=== PATIENT | male | born 1980 | race Caucasian/White ===

== ENCOUNTER 2017-12-11 15:01 | Emergency (ER) | payer OTHER ==
[~2017-12-11] VITALS: Ht 177.8 cm; Wt 95.4 kg
[~2017-12-11 15:01] MED LIST: ACET325T52 PO; BUSP15TA3 PO; CARB200T6 PO; CHOL500051 PO; CLOT15CR2 TP; DIPH25TA24 PO; FURO20TA4 PO; HALO5TAB PO; LORA2TAB2 PO; MENT71OI TP; RISP1TAB26 PO; TC1U15 TOP; TOPI100T37 PO
[2017-12-11 16:46] LABS: BASOPHILS % 0.8 % (0.0-2.0); EOSINOPHILS % 1.3 % (0.0-5.0); HEMATOCRIT. 37.3 % (42.0-52.0); LYMPHOCYTES % 29.2 % (20.0-50.0); MEAN CORPUSCULAR HEMOGLOBIN 28.7 pg (28.0-32.0); MEAN CORPUSCULAR VOLUME 82.6 fL (80.0-94.0); MONOCYTES % 8.3 % (2.0-8.0); NEUTROPHILS % 60.4 % (40.0-76.0); PLATELET 364 x1000/uL (130-400); RED BLOOD CELL COUNT 4.52 mill/uL (4.7-6.1); RED CELL DISTRIBUTION WIDTH 14.9 % (11.6-14.6)
[2017-12-11 16:49] LABS: CHLORIDE 106 mEq/L (98-107)
[2017-12-11 16:58] LABS: INR 1.2; PARTIAL THROMBOPLASTIN TIME 32.6 sec (23.4-31.0); PROTHROMBIN TIME 12.4 sec (9.1-11.1)
[2017-12-11] MEDS ORDERED: ACETAMINOPHEN 325MG TABLET PO ONE (18:45)
[2017-12-11] MEDS ORDERED: IOHEXOL-300 100 ML BOTTLE ONE (19:03)
[2017-12-11 19:25] LABS: CLARITY URINE CLEAR (CLEAR); COLOR URINE YELLOW (YELLOW); KETONES URINE NEGATIVE (NEGATIVE); LEUKOCYTE ESTERASE URINE NEGATIVE (NEGATIVE); NITRITE URINE NEGATIVE (NEGATIVE); OCCULT BLOOD URINE TRACE (NEGATIVE); PH URINE 5.5 (4.5-8.0); PROTEIN URINE NEGATIVE (NEGATIVE); SPECIFIC GRAVITY URINE 1.072 (1.005-1.030); UROBILINOGEN URINE 0.2 E.U./dL (0.2-1.0)
[2017-12-11 20:32] VITALS: BP 110/71
== END 2017-12-11 20:34 | disposition home or self-care (01) ==
LOC: ER 15:01
DX: N39.0 Urinary tract infection, site not specified (principal); D64.9 Anemia, unspecified; Z98.890 Other specified postprocedural states; Z79.899 Other long term (current) drug therapy
CPT/HCPCS: 36415; 74177; 80053; 81003; 85025; 85610; 85730; 99285; Q9967; Z7610

== ENCOUNTER 2018-01-16 01:35 | Inpatient (IN) | payer OTHER ==
[~2018-01-16] VITALS: Ht 203.2 cm; Wt 94.8 kg
[~2018-01-16 01:35] MED LIST changes: +TAMS-11 PO
[2018-01-16] MEDS ORDERED: SODIUM CHLORIDE 0.9% 1,000 ML IV ONE (02:29)
[2018-01-16 03:27] LABS: BASOPHILS % 0.4 % (0.0-2.0); EOSINOPHILS % 1.2 % (0.0-5.0); HEMATOCRIT. 38.6 % (42.0-52.0); HEMOGLOBIN. 13.2 g/dL (14.0-18.0); LYMPHOCYTES % 23.8 % (20.0-50.0); MEAN CORPUSCULAR VOLUME 82.2 fL (80.0-94.0); MEAN PLATELET VOLUME 7.3 fl (7.4-10.4); MONOCYTES % 7.7 % (2.0-8.0); NEUTROPHILS % 66.9 % (40.0-76.0); PLATELET 472 x1000/uL (130-400); RED CELL DISTRIBUTION WIDTH 14.7 % (11.6-14.6)
[2018-01-16 03:34] LABS: CHLORIDE 104 mEq/L (98-107)
[2018-01-16 03:37] LABS: INR 1.2; PARTIAL THROMBOPLASTIN TIME 27.6 sec (23.4-31.0); PROTHROMBIN TIME 12.2 sec (9.1-11.1)
[2018-01-16 05:20] LABS: CLARITY URINE CLEAR (CLEAR); KETONES URINE NEGATIVE (NEGATIVE); LEUKOCYTE ESTERASE URINE 1+ (NEGATIVE); NITRITE URINE NEGATIVE (NEGATIVE); OCCULT BLOOD URINE 3+ (NEGATIVE); PROTEIN URINE 2+ (NEGATIVE); SPECIFIC GRAVITY URINE 1.018 (1.005-1.030); UROBILINOGEN URINE 0.2 E.U./dL (0.2-1.0)
[2018-01-16 05:30] LABS: COLOR URINE BLOODY (YELLOW)
[2018-01-16] MEDS ORDERED: CEFTRIAXONE 1 G PREMIX 50 ML IV ONE (05:45)
[2018-01-16] MEDS ORDERED: LIDOCAINE HCL 2% JELLY 5ML MM ONE (08:00)
[2018-01-16 12:00] VITALS: BP 111/76
[2018-01-16] MEDS ORDERED: BUSP-29 MT (13:06)
[2018-01-16] MEDS ORDERED: ONDANSETRON HCL 4MG/2ML INJ IV PRN (13:30)
[2018-01-16] MEDS ORDERED: ACETAMINOPHEN 650MG/20.3ML UDC GT PRN (13:30)
[2018-01-16] MEDS ORDERED: ONDANSETRON 4MG ODT PO PRN (13:30)
[2018-01-16] MEDS ORDERED: ACETAMINOPHEN 325MG TABLET PO PRN (13:30)
[2018-01-16] MEDS ORDERED: ACETAMINOPHEN 650MG SUPP PR PRN (13:30)
[2018-01-16] MEDS: FUROSEMIDE 20MG TABLET PO SCH ×2 (13:45→16:02)
[2018-01-16 16:00] VITALS: BP 106/69
[2018-01-16] MEDS: TOPIRAMATE 100MG TABLET PO SCH (16:02)
[2018-01-16] MEDS: RISPERIDONE 1MG TABLET PO SCH (16:02)
[2018-01-16 16:19] LABS: *BARBITURATES SCREEN URINE NEGATIVE (NEGATIVE); *BENZODIAZEPINES SCREEN URINE NEGATIVE (NEGATIVE); *COCAINE SCREEN URINE NEGATIVE (NEGATIVE); METHADONE URINE SCREEN NEGATIVE (NEGATIVE); OPIATES URINE SCREEN NEGATIVE (NEGATIVE)
[2018-01-16 16:20] LABS: *AMPHETAMINES SCREEN URINE NEGATIVE (NEGATIVE); CANNABINOID URINE SCREEN NEGATIVE (NEGATIVE); PHENCYCLIDINE URINE SCREEN NEGATIVE (NEGATIVE)
[2018-01-16 20:00] VITALS: BP 139/82
[2018-01-16] MEDS: BUSPIRONE HCL 10MG TABLET PO SCH (20:23)
[2018-01-16] MEDS: CARBAMAZEPINE 100MG TABLET CHEW PO SCH (20:24)
[2018-01-16 21:14] LABS: CREATINE KINASE 20 IU/L (39-308)
[2018-01-16 21:16] LABS: CREATINE KINASE MB FRACTION < 1.0 ng/mL (0.5-3.6)
[2018-01-17] VITALS: BP 121/79
[2018-01-17 04:00] VITALS: BP 119/77
[2018-01-17] MEDS ORDERED: CEFTRIAXONE 1 G PREMIX 50 ML IV SCH (06:00)
[2018-01-17 08:00] VITALS: BP 98/66
[2018-01-17] MEDS: FUROSEMIDE 20MG TABLET PO SCH (09:00)
[2018-01-17 09:19] LABS: BASOPHILS % 0.4 % (0.0-2.0); EOSINOPHILS % 0.9 % (0.0-5.0); HEMATOCRIT. 39.7 % (42.0-52.0); HEMOGLOBIN. 13.7 g/dL (14.0-18.0); MEAN CORPUSCULAR HEMOGLOBIN 28.4 pg (28.0-32.0); MEAN CORPUSCULAR VOLUME 82.5 fL (80.0-94.0); MEAN PLATELET VOLUME 7.1 fl (7.4-10.4); MONOCYTES % 4.5 % (2.0-8.0); NEUTROPHILS % 62.2 % (40.0-76.0); PLATELET 488 x1000/uL (130-400); RED BLOOD CELL COUNT 4.82 mill/uL (4.7-6.1); RED CELL DISTRIBUTION WIDTH 14.6 % (11.6-14.6)
[2018-01-17 09:40] LABS: CHLORIDE 105 mEq/L (98-107)
[2018-01-17 09:45] LABS: PHOSPHORUS 2.7 mg/dL (2.5-4.9)
[2018-01-17 09:46] LABS: LDL CHOLESTEROL 54 mg/dL (5-100)
[2018-01-17 09:48] LABS: HDL CHOLESTEROL 55 mg/dL (40-59)
[2018-01-17 09:50] LABS: T4 FREE 0.76 ng/dL (0.76-1.46)
[2018-01-17 10:10] LABS: CREATINE KINASE 21 IU/L (39-308)
[2018-01-17 10:11] LABS: CREATINE KINASE MB FRACTION < 1.0 ng/mL (0.5-3.6)
[2018-01-17] MEDS: RISPERIDONE 1MG TABLET PO SCH (11:43)
[2018-01-17] MEDS: TOPIRAMATE 100MG TABLET PO SCH (11:43)
[2018-01-17] MEDS: BUSPIRONE HCL 10MG TABLET PO SCH ×2 (11:43→20:48)
[2018-01-17] MEDS: CARBAMAZEPINE 100MG TABLET CHEW PO SCH ×2 (11:44→19:11)
[2018-01-17] MEDS: SODIUM CHLORIDE 0.45% 1,000 ML IV SCH (11:54)
[2018-01-17 12:00] VITALS: BP 94/67
[2018-01-17 16:00] VITALS: BP 90/61
[2018-01-17 20:00] VITALS: BP 98/63
[2018-01-18] VITALS: BP 102/66
[2018-01-18 04:00] VITALS: BP 103/67
[2018-01-18 08:00] VITALS: BP 101/60
[2018-01-18] MEDS: TOPIRAMATE 100MG TABLET PO SCH (11:29)
[2018-01-18] MEDS: FUROSEMIDE 20MG TABLET PO SCH (11:29)
[2018-01-18] MEDS: RISPERIDONE 1MG TABLET PO SCH (11:29)
[2018-01-18] MEDS: BUSPIRONE HCL 10MG TABLET PO SCH ×2 (11:29→22:26)
[2018-01-18] MEDS: SODIUM CHLORIDE 0.45% 1,000 ML IV SCH ×3 (11:30→12:16)
[2018-01-18 12:00] VITALS: BP 95/59
[2018-01-18 16:00] VITALS: BP 93/63
[2018-01-18 16:53] LABS: AMMONIA 71 uMol/L (<32)
[2018-01-18 17:08] LABS: AMYLASE 131 IU/L (25-115)
[2018-01-18] MEDS: CARBAMAZEPINE 200MG TABLET PO SCH (17:46)
[2018-01-18 20:00] VITALS: BP 96/61
[2018-01-19] VITALS: BP 97/61
[2018-01-19] MEDS: SODIUM CHLORIDE 0.45% 1,000 ML IV SCH (03:42)
[2018-01-19 04:00] VITALS: BP 96/65
[2018-01-19 07:40] LABS: BASOPHILS % 0.5 % (0.0-2.0); EOSINOPHILS % 1.7 % (0.0-5.0); HEMATOCRIT. 36.7 % (42.0-52.0); HEMOGLOBIN. 12.8 g/dL (14.0-18.0); LYMPHOCYTES % 33.4 % (20.0-50.0); MEAN CORPUSCULAR HEMOGLOBIN 28.6 pg (28.0-32.0); MEAN CORPUSCULAR VOLUME 82.4 fL (80.0-94.0); MEAN PLATELET VOLUME 7.3 fl (7.4-10.4); MONOCYTES % 8.8 % (2.0-8.0); NEUTROPHILS % 55.6 % (40.0-76.0); PLATELET 466 x1000/uL (130-400); RED BLOOD CELL COUNT 4.46 mill/uL (4.7-6.1); RED CELL DISTRIBUTION WIDTH 14.8 % (11.6-14.6)
[2018-01-19 08:00] VITALS: BP 91/55
[2018-01-19] MEDS: FUROSEMIDE 20MG TABLET PO SCH (08:59)
[2018-01-19] MEDS: CARBAMAZEPINE 200MG TABLET PO SCH ×2 (08:59→17:42)
[2018-01-19] MEDS: TOPIRAMATE 100MG TABLET PO SCH (08:59)
[2018-01-19] MEDS: RISPERIDONE 1MG TABLET PO SCH (08:59)
[2018-01-19] MEDS: BUSPIRONE HCL 10MG TABLET PO SCH (08:59)
[2018-01-19 10:08] LABS: CHLORIDE 105 mEq/L (98-107)
[2018-01-19 10:14] LABS: PHOSPHORUS 3.3 mg/dL (2.5-4.9)
[2018-01-19 16:00] VITALS: BP 91/55
[2018-01-19 20:00] VITALS: BP 93/60
[2018-01-20] VITALS: BP 96/59
[2018-01-20 04:00] VITALS: BP 107/52
[2018-01-20] MEDS: BUSPIRONE HCL 10MG TABLET PO SCH ×3 (05:42→20:49)
[2018-01-20 08:00] VITALS: BP 107/68
[2018-01-20] MEDS: FUROSEMIDE 20MG TABLET PO SCH (09:32)
[2018-01-20] MEDS: RISPERIDONE 1MG TABLET PO SCH (09:32)
[2018-01-20] MEDS: CARBAMAZEPINE 200MG TABLET PO SCH ×2 (09:32→17:13)
[2018-01-20] MEDS: TOPIRAMATE 100MG TABLET PO SCH (09:32)
[2018-01-20 12:00] VITALS: BP 103/58
[2018-01-20 16:00] VITALS: BP 98/62
[2018-01-20 20:00] VITALS: BP 99/64
[2018-01-21] VITALS: BP 95/62
[2018-01-21 04:00] VITALS: BP 99/62
[2018-01-21 08:00] VITALS: BP 99/71
[2018-01-21] MEDS: FUROSEMIDE 20MG TABLET PO SCH (08:49)
[2018-01-21] MEDS: TOPIRAMATE 100MG TABLET PO SCH (08:50)
[2018-01-21] MEDS: CARBAMAZEPINE 200MG TABLET PO SCH ×2 (08:50→17:47)
[2018-01-21] MEDS: RISPERIDONE 1MG TABLET PO SCH (08:50)
[2018-01-21] MEDS: BUSPIRONE HCL 10MG TABLET PO SCH (08:50)
[2018-01-21 12:00] VITALS: BP 101/68
[2018-01-21 15:24] VITALS: BP 101/68
[2018-01-21 16:00] VITALS: BP 101/68
== END 2018-01-21 19:06 | disposition home or self-care (01) | DRG 466 ==
LOC: ER 01:35 → 6EST 08:02 → ENRESERV 08:53 → 6EST 12:20
PROVIDERS: ADMIT Internal Medicine; ATTEND Internal Medicine
DX: T83.83XA Hemorrhage due to genitourinary prosthetic devices, implants and grafts, initial encounter (principal); K85.90 Acute pancreatitis without necrosis or infection, unspecified; E44.0 Moderate protein-calorie malnutrition; F72 Severe intellectual disabilities; N02.9 Recurrent and persistent hematuria with unspecified morphologic changes; F41.9 Anxiety disorder, unspecified; G40.909 Epilepsy, unspecified, not intractable, without status epilepticus; D64.9 Anemia, unspecified; K43.9 Ventral hernia without obstruction or gangrene; N40.1 Benign prostatic hyperplasia with lower urinary tract symptoms; R33.8 Other retention of urine; Z53.29 Procedure and treatment not carried out because of patient's decision for other reasons; Z90.49 Acquired absence of other specified parts of digestive tract; Z79.899 Other long term (current) drug therapy; Z68.23 Body mass index [BMI] 23.0-23.9, adult; Z90.81 Acquired absence of spleen; Z93.3 Colostomy status; Y83.8 Other surgical procedures as the cause of abnormal reaction of the patient, or of later complication, without mention of misadventure at the time of the procedure; Y92.89 Other specified places as the place of occurrence of the external cause
CPT/HCPCS: 36415; 51702; 71045; 76700; 80048; 80053; 80061; 80305; 81003; 82140; 82150; 82550; 82553; 83690; 83735; 83880; 84100; 84439; 84443; 84481; 84484; 85025; 85610; 85730; 86850; 86870; 86900; 87077; 87086; 87186; 87493; 92610; 93970; 96365; 97162; 97166; 99291; J0696; J7030; A4315